=== PATIENT | female | born 1950 | race Caucasian/White ===

== ENCOUNTER 2017-04-20 22:00 | Emergency (ER) | payer MEDICARE, MEDICAID ==
[~2017-04-20] VITALS: Ht 152.4 cm; Wt 108.0 kg
[2017-04-20] MEDS ORDERED: HUMALOG100 UNIT/1 SUBQ (22:03)
[2017-04-20] MEDS ORDERED: LEVEMIR SUBQ (22:04)
[2017-04-20] MEDS ORDERED: DUONEB 2.5-0.5 M3 ML INH (22:04)
[2017-04-20] MEDS ORDERED: HYDRALAZINE 10M10 MG PO (22:04)
[2017-04-20] MEDS ORDERED: NEURONTIN600 MG PO (22:05)
[2017-04-20] MEDS ORDERED: SINGULAIR 10 MG10 M1 PO (22:05)
[2017-04-20] MEDS ORDERED: LOPRESSOR50 PO (22:05)
[2017-04-20] MEDS ORDERED: LASIX 40 MG TAB40 M2 PO (22:05)
[2017-04-20] MEDS ORDERED: MUCINEX600 MG PO (22:05)
[2017-04-20] MEDS ORDERED: NICOTINE TRANSD21 M1 (22:06)
[2017-04-20] MEDS ORDERED: PRAVACHOL40 MG PO (22:06)
[2017-04-20] MEDS ORDERED: PREDNISONE 20 M20 MG PO (22:06)
[2017-04-20] MEDS ORDERED: POTASSIUM20 PO (22:06)
[2017-04-20] MEDS ORDERED: THIAMINE HCL100 MG PO (22:07)
[2017-04-20] MEDS ORDERED: QUESTRAN PACKET4 GM PO (22:07)
[2017-04-20] MEDS ORDERED: SYMBICORT160 MCG/4. INH (22:07)
[2017-04-20] MEDS ORDERED: TRAMADOL 50 MG50 MG PO (22:08)
[2017-04-20] MEDS ORDERED: GLUCAGON (22:08)
[2017-04-20] MEDS ORDERED: VENTOLIN HFA 1818 GM INH (22:08)
[2017-04-20] MEDS ORDERED: KEFLEX500 M1 PO (23:24)
[2017-04-21 00:12] VITALS: BP 133/66
== END 2017-04-21 00:22 | disposition home or self-care (01) ==
LOC: M.ERS 22:00
DX: S81.812A Laceration without foreign body, left lower leg, initial encounter (principal); E11.9 Type 2 diabetes mellitus without complications; V29.9XXA Motorcycle rider (driver) (passenger) injured in unspecified traffic accident, initial encounter; Y93.89 Activity, other specified; Y92.89 Other specified places as the place of occurrence of the external cause; Y99.8 Other external cause status